=== PATIENT | male | born 1970 | race Two or more races ===

== ENCOUNTER 2017-09-10 18:25 | Emergency (ER) | payer OTHER ==
[~2017-09-10] VITALS: Ht 175.3 cm; Wt 86.2 kg
--- NOTE | 2017-09-10 18:35 | NUR ---
PT IS IN ROOM #2B. DR THORPE EVALUATED THE PT.
[2017-09-10] MEDS ORDERED: HYDROCODONE/APAP 10-325 MG TABLET PO ONE (18:45)
[2017-09-10] MEDS ORDERED: OMEP20TA5 PO (18:56)
[2017-09-10] MEDS ORDERED: ERGO500040 PO (18:56)
[2017-09-10] MEDS ORDERED: GABA-534 PO (18:56)
[2017-09-10] MEDS ORDERED: DORZ10DR11 RIGHTEYE (18:56)
[2017-09-10] MEDS ORDERED: AMLO10TA2 PO (18:56)
[2017-09-10] MEDS ORDERED: CEPH500C2 PO (18:56)
[2017-09-10] MEDS ORDERED: METF500T6 PO (18:56)
[2017-09-10] MEDS ORDERED: ATOR80TA PO (18:56)
[2017-09-10] MEDS ORDERED: METH50TA3 PO (18:56)
[2017-09-10] MEDS ORDERED: ASPI81TA31 PO (18:56)
[2017-09-10] MEDS ORDERED: INSU100V7 SQ (18:56)
[2017-09-10] MEDS ORDERED: LATA2.5D7 OP (18:56)
[2017-09-10] MEDS ORDERED: HYDR-3974 PO (18:56)
[2017-09-10] MEDS ORDERED: INSU100C SQ (18:56)
[2017-09-10] MEDS ORDERED: BRIM5DRO RIGHTEYE (18:56)
[2017-09-10] MEDS ORDERED: HYDROCODONE/APAP 10-325 MG TABLET ONE (18:58)
--- NOTE | 2017-09-10 18:59 | NUR ---
REPORT GIVEN TO DATA MANAGER RN.
--- NOTE | 2017-09-10 19:10 | NUR ---
REPORT TAKEN FROM DAY SHIFT RN. ASSUMING PT CARE AT THIS TIME.
[2017-09-10 19:12] LABS: BASOPHILS # (AUTO) 0.1 K/uL (0.0-8.0); BASOPHILS % (AUTO) 0.7 % (0.0-2.0); EOSINOPHILS # (AUTO) 0.4 K/uL (0.0-0.7); EOSINOPHILS % (AUTO) 3.7 % (0.0-7.0); HEMATOCRIT 33.3 % (36.7-47.1); HEMOGLOBIN 11.3 g/dL (12.5-16.3); LYMPHOCYTES # (AUTO) 2.6 K/uL (20.0-40.0); MEAN CORPUSCULAR HEMOGLOBIN 26.7 uug (23.8-33.4); MEAN CORPUSCULAR HGB CONC 34 g/dL (32.5-36.3); MONOCYTES # (AUTO) 1.1 K/uL (2.0-10.0); NEUTROPHILS # (AUTO) 6.6 K/uL (1.8-8.9); NEUTROPHILS % (AUTO) 61.6 % (38.5-71.5); PLATELET COUNT (AUTO) 259 K/uL (152-348); RED BLOOD CELL COUNT(AUTO) 4.21 MIL/uL (4.06-5.63); WHITE BLOOD COUNT (AUTO) 10.7 K/uL (3.6-10.2)
--- NOTE | 2017-09-10 19:30 | NUR ---
RADIOLOGY AT BEDSIDE FOR XRAY.
--- NOTE | 2017-09-10 19:53 | NUR ---
PT RESTING IN BED W/ EYES CLOSED. NO DISTRESS NOTED.
--- NOTE | 2017-09-10 20:50 | NUR ---
SPOKE TO SABRINA FROM [employer] [facility] FOR PT DISCHARGE TRANSPORT. TRIP#[id number], ETA 10:15
--- NOTE | 2017-09-10 21:16 | NUR ---
CALLED [facility] AND UPDATED ON PENDING DISCHARGE AND TRANSPORT ARRANGEMENTS.
--- NOTE | 2017-09-10 22:55 | NUR ---
Patient discharged to home in stable conditon. Written and verbal after care instructions given. Patient verbalizes understanding of instructions. Pt taken via gurney by [facility]. No distress noted.
[2017-09-10 23:19] VITALS: BP 142/92
== END 2017-09-10 23:20 | disposition home or self-care (01) ==
LOC: ER 18:31
DX: S93.602A Unspecified sprain of left foot, initial encounter (principal); W22.8XXA Striking against or struck by other objects, initial encounter; Y93.89 Activity, other specified; Y92.89 Other specified places as the place of occurrence of the external cause; Y99.8 Other external cause status
CPT/HCPCS: 36415; 71045; 73610; 85025; A4663